=== PATIENT | female | born 1950 | race Caucasian/White ===

== ENCOUNTER → 2022-01-06 | Outpatient (CLI) | payer MEDICARE, OTHER ==
[~2022-01-06] MED LIST: CATHETER FLUSH 10 ML SYR IV PRN; HOLD METFORMIN - RECEIVED CONTRAST 20 ML VIAL IV SCH; HYDR-3583 PO; IBP800T PO; IOHEXOL 350 MG/ML 100 ML (OMNIPAQUE 350) VIAL IV ONE; NS 100 ML (IVPB) BAG IV ONE
--- NOTE | 2022-01-06 15:07 | Diagnostic Imaging Report ---
EXAMINATION: CT chest, abdomen and pelvis with intravenous contrast. TECHNIQUE: Multiple contiguous axial images were obtained through the chest, abdomen and pelvis after the uneventful administration of intravenous contrast. All CT scans use one or more of the following dose optimizing techniques: automated exposure control, MA and/or KvP adjustment based on patient size and exam type or iterative reconstruction. HISTORY: Chest pain, abdominal pain. COMPARISON: None available. FINDINGS: There is no edema or pneumonia. No pleural effusion. No pneumothorax. There are a few tree-in-bud nodules in the right lower lobe. There are a few tree-in-bud nodules in the posterior right upper lobe. There is no axillary or supraclavicular lymphadenopathy. There is no mediastinal lymphadenopathy. Heart size is normal. There are no coronary artery calcifications. No pericardial effusion. Aorta is normal in caliber. The liver is normal without focal lesion. Gallbladder is surgically absent. There is mild intra- and extrahepatic biliary ductal dilation without obstructing lesion or stone seen. Pancreas is normal. Spleen is normal. Adrenal glands are normal. The kidneys are normal. There is no hydronephrosis. Urinary bladder is normal. Bowel is normal in caliber without obstruction or inflammation. No free fluid or air. No abdominal or pelvic lymphadenopathy. Aorta is normal in caliber without aneurysm. There are no suspicious osseus lesions. There is a subacute right anterior fifth rib fracture. IMPRESSION: 1. Mild tree-in-bud nodules in the right upper lobe and right lower lobe consistent with mild aspiration. 2. Mild intra and extrahepatic biliary ductal dilation without obstructing lesion or stone likely related to prior cholecystectomy, correlate for any evidence of elevated bilirubin. Dictated by: Dictated on workstation # [id number]
== END ==
LOC: RAD FS 13:29
PROVIDERS: ATTEND Nurse Practitioner
DX: C43.9 Malignant melanoma of skin, unspecified (principal); R91.8 Other nonspecific abnormal finding of lung field; R07.9 Chest pain, unspecified
CPT/HCPCS: 71260; 74177; Q9967